=== PATIENT | male | born 1975 | race Caucasian/White ===

== ENCOUNTER 2021-03-08 21:15 | Inpatient (IN) | payer OTHER, SELFPAY ==
[2021-03-08 21:17] VITALS: BP 150/102; PULSE 88; RESP 29; TEMP 36.6; O2SAT 94; BMI 29.3
[2021-03-08 21:21] VITALS: BP 150/102; PULSE 88; RESP 26; TEMP 36.6; O2SAT 94
--- NOTE | 2021-03-08 22:12 | EKG12_ITS ---
Test Reason : DYSRHYTHMIA Blood Pressure : / mmHG Vent. Rate : 092 BPM Atrial Rate : 092 BPM P-R Int : 156 ms QRS Dur : 082 ms QT Int : 366 ms P-R-T Axes : 038 028 009 degrees QTc Int : 452 ms Normal sinus rhythm Normal ECG Confirmed by BITA RESENDEZ, DANNI ([id number]), metropolitan editor NEETA GUPTA ([id number]) on 03/15/2021 6:27:44 AM Referred By: ALINA Confirmed By:DANNI SUNSHINE MD
--- NOTE | 2021-03-08 22:12 | RAD_ITS ---
STUDY: X-RAY CHEST REASON FOR EXAM: Male, 45 years old. Dyspnea. Fever and cough. TECHNIQUE: Single AP portable view of the chest. COMPARISON: None. FINDINGS: The lungs are hypoexpanded. There is diffuse groundglass infiltrates throughout both lungs. There is no demonstrated pleural abnormality. Normal size heart. Normal mediastinum and leona. Normal visualized pulmonary arteries. Normal visualized aortic arch and descending thoracic aorta. Normal visualized thoracic spine. Normal visualized ribs, clavicles, and shoulders. There is no demonstrated abnormality of the visualized soft tissue structures of the upper abdomen. RAD/Chest 1 View (Portable) IMPRESSION: Diffuse groundglass pulmonary infiltrates. Question atypical viral pneumonia. Electronically Signed: Koby Brewer DO at 22:44 EDT Tel [phone], Service support ,
[2021-03-08] MEDS: dexAMETHasone 10 MG/ML Vial IV (22:42)
[2021-03-08 22:49] VITALS: BP 172/100; PULSE 100; RESP 29; TEMP 36.9; O2SAT 92
[2021-03-08 22:56] LABS: Hematocrit 41.7 % (40-54); Hemoglobin 14.6 g/dL (13.0-16.5); Mean Corpuscular Hgb 31.1 pg (27.0-32.0); Mean Corpuscular Volume 88.7 fL (80-94); Mean Platelet Vol. 10.3 fl (6.2-12.0); POSITIVE COUNT YES; POSITIVE MORPHOLOGY YES; Platelet Count 203 K/mm3 (150-450); RBC Distribution Width CV 11.7 % (11.6-14.6); RBC Distribution Width SD 37.6 fl (35.1-43.9); White Blood Count 7.4 K/mm3 (4.4-11.0)
--- NOTE | 2021-03-08 22:58 | EDS_ITS ---
HPI History of Present Illness Chief Complaint: Shortness of Breath Narrative Narrative: Patient is a 45-year-old male with no reported significant medical or surgical history. He states he has had nasal congestion cough fatigue and loose stool for 7 to 10 days. He states he is not vaccinated against COVID. He denies any known side contacts. He states he does not have a history of lung disorder or smoking history or need for supplemental oxygen. He reports that he feels her symptoms have been gradually worsening and his shortness of breath has worsened as well and therefore he comes in for evaluation [facility] Home Medications NK 03/08/21 [History Last Taken Unknown] Allergy/AdvReac Type Severity Reaction Status Date / Time No Known Allergies Allergy Verified 03/08/21 21:15 Surgical History (Updated 03/08/21 @ 21:18 by Sasha Fregoso) H/O hernia repair Social History Smoking Status: Never smoker [facility] ED Constitutional Constitutional ED: Denies chills or fever(s) ENT ENT ED: Reports rhinorrhea and sore throat Cardiovascular Cardiovascular: Denies chest pain Respiratory/Chest Respiratory/Chest: Reports cough and dyspnea Gastrointestinal Gastrointestinal: Reports diarrhea; Denies abdominal pain, nausea or vomiting Genitourinary Genitourinary ED: Denies dysuria Musculoskeletal Musculoskeletal: Reports myalgias Integumentary Denies rash Neurologic Neurologic: Denies headache(s) Hematologic/Lymphatic Hematologic/Lymphatic: Denies easy bleeding or easy bruising EXAM Physical Exam Const Vital Signs: 03/08/21 21:17 03/08/21 21:21 03/08/21 22:49 Temperature 98 F 98 F 98.5 F Temperature Source Oral Oral Oral Pulse Rate 88 88 100 Respiratory Rate 29 H 26 H 29 H Respiratory Effort Short of Breath Labored Respiratory Depth Normal Respiratory Pattern Tachypnea Blood Pressure 150/102 H 150/102 H 172/100 H Blood Pressure Mean 118 118 124 Pulse Ox 94 94 92 Oxygen Delivery Method Nasal Cannula Nasal Cannula Nasal Cannula Oxygen Flow Rate (L/min) 8 8 9 03/08/21 23:08 Temperature 98.5 F Temperature Source Oral Pulse Rate 100 Respiratory Rate 20 H Respiratory Effort Respiratory Depth Respiratory Pattern Blood Pressure 160/98 H Blood Pressure Mean 118 Pulse Ox 92 Oxygen Delivery Method Nasal Cannula Oxygen Flow Rate (L/min) 9 Positive well nourished and well developed General Appearance ED: well developed HEENT HEENT Narrative: Nasal mucosa is hyper Kosovan buggy and there is cobblestone in the posterior friends consistent with sinus drainage but no airway edema or compromise Eyes PERRL and EOMs intact bilaterally Neck supple and no JVD Neck Narrative: Positive anterior cervical lymphadenopathy Chest Wall palpation of chest normal Resp Resp Narrative: Patient is in mild respiratory distress with the kidney and accessory muscle use. Breath sounds are diminished throughout with diffuse rhonchi noted. Cardio regular rate and regular rhythm GI normal to inspection, nondistended, normoactive bowel sounds, non-tender and non-distended GI Narrative: Bowel sounds are hyperactive. No voluntary guardian or rigidity no. Mass Palpation: soft Extremity normal to inspection Extremity Narrative: No asymmetric edema no pitting edema negative homicide bilaterally Neuro oriented x3 and CN's II-XII intact bilaterally Sensorium / Orientation: alert Motor Exam: strength 5/5 throughout Psych mental status grossly normal Skin no rashes or lesions noted MDM MDM MDM Narrative Medical decision making narrative: Patient presented to the ER With a room air pulse ox in the mid-80s and accessory muscle use all consistent with acute respiratory failure. His history and exam is consistent with COVID's rapid swab was obtained. This was positive and x-ray did show changes consistent with COVID pneumonia. Patient had replaced on 10 L nasal cannula keep his oxygen level between 90 and 92%. He is awake and alert and talking but he is still to With accessory muscle use. Therefore this time as he is requiring a high level of oxygen he cannot go home and need to be admitted for antiviral treatment and to ensure her symptoms are improving and not worsening the need for positive pressure ventilation or intubation Lab Data Attestation: I reviewed the patient's lab results. Labs: Laboratory Results - last 24 hr 03/08/21 03/08/21 21:30 21:30 WBC 7.4 RBC 4.70 Hgb 14.6 Hct 41.7 MCV 88.7 MCH 31.1 MCHC 35.0 RDW Std Deviation 37.6 RDW Coeff of Herrera 11.7 Plt Count 203 MPV 10.3 Immature Gran % (Auto) UNIT CONTROL WORKER Neut % (Auto) UNIT CONTROL WORKER Lymph % (Auto) UNIT CONTROL WORKER [place] % (Auto) UNIT CONTROL WORKER Eos % (Auto) UNIT CONTROL WORKER Baso % (Auto) UNIT CONTROL WORKER Absolute Neuts (auto) 5.9 Absolute Lymphs (auto) 1.32 Total Counted UNIT CONTROL WORKER Neutrophils % (Manual) 77 H Band Neutrophils % 3 Lymphocytes % (Manual) 18 L Monocytes % (Manual) 2 Nucleated RBC % UNIT CONTROL WORKER Diff Path Review May foll Sodium 133 L Potassium 4.0 Chloride 96 L Carbon Dioxide 29.0 Anion Gap 8 BUN 11 Creatinine 0.64 L Estim Creat Clear Calc 119.48 Est GFR (MDRD) Af Amer 171 Est GFR (MDRD) Non-Af 141 BUN/Creatinine Ratio 17.1 Glucose 113 H Calcium 8.2 L Magnesium 1.9 Troponin I High Sens 8 Radiography Diagnostic Testing: Clinical Impression(s) from Imaging Studies Chest X-Ray 03/08/21 22:12 IMPRESSION: Diffuse groundglass pulmonary infiltrates. Question atypical viral pneumonia. Electronically Signed: Koby Brewer DO at 22:44 EDT Tel [phone], Service support , Critical Care Time Critical Care Time: Yes Critical care time (excluding procedures): - (Please note critical care time of 33 minutes) Discharge Plan Triage Chief Complaint: Shortness of Breath ED Provider: Carlyle Perez Dx/Rx/DC Orders Clinical Impression: Acute respiratory failure with hypoxia, Pneumonia due to 2019 novel coronavirus Prescriptions: No Action NK RF: 0 Primary Care Provider: Matt Griffin Referrals: Matt Griffin MD [Primary Care Provider] - Disposition Disposition: Acute Care [facility]
[2021-03-08 23:04] LABS: Differential Indicated MANUAL DIFF
[2021-03-08] MEDS: Acetaminophen 500 MG Tablet 1000 MG PO (23:07)
[2021-03-08 23:08] VITALS: BP 160/98; PULSE 100; RESP 20; TEMP 36.9; O2SAT 92
[2021-03-08 23:14] LABS: Anion Gap 8 (5-15); BUN 11 mg/dL (7-18); BUN/Creat Ratio 17.1 RATIO (10-20); Calcium,Total 8.2 mg/dL (8.5-10.1); Chloride 96 mmol/L (98-107); Creatinine, Serum 0.64 mg/dL (0.70-1.30); EST Glomerular Filtration Rate 141 mL/min (>60); Est Glom Filt Rate - Afr Amer 171 mL/min (>60); Estimated Creatinine Clearance 119.48 ml/min; Glucose 113 mg/dL (74-106); Magnesium 1.9 mg/dL (1.6-2.6); Sodium Level 133 mmol/L (136-145); Troponin-I HS 8 pg/mL (3.0-78.0)
[2021-03-08 23:24] LABS: Lymphocyte 18 % (19-41); Monocyte 2 % (0-10); Neutrophil-Band 3 % (0-5); Neutrophil-Segmented 77 % (47-70); Scan Smear per Review Criteria MANUAL DIFF
[2021-03-08 23:25] LABS: Absolute Lymphocyte Count 1.32 X10^3/uL (0.83-4.51); Absolute Neutrophil Count 5.9 X10^3/uL (2.0-7.7)
[2021-03-09] VITALS (14 sets, daily range): BP systolic 137–183; BP diastolic 86–113; PULSE 80–99; RESP 18–28; TEMP 36–37.3; O2SAT 90–94; BMI 27.3
--- NOTE | 2021-03-09 01:21 | PCM.HP.STD ---
HPI - General General Date of Admission: 03/09/21 Date of Service: 03/09/21 Chief Complaint: SOB HPI Narrative FELICIA GARCIA, is a 45 M with no significant medical history who presents to emergency department with shortness of breath. His symptoms started on February 25, 2021. His symptoms improved and then worsened. Associated with symptoms is a cough occasionally productive for hemoptysis. He reports anosmia and dysgeusia. Further he reports anorexia; myalgia; fatigue; weakness; subjective fever; chills; sore throat and wheezes. He is unvaccinated for COVID-19 virus. Patient tested positive for Covid 19 virus at the emergency department. Patient is unvaccinated against COVID-19 virus. PFSH no medical history Home Medications NK 03/08/21 [History Last Taken Unknown] Allergy/AdvReac Type Severity Reaction Status Date / Time No Known Allergies Allergy Verified 03/08/21 21:15 Family History (Updated 03/09/21 @ 01:[address] Javi Arshad MD) Other Dementia Surgical History H/O hernia repair Social History Smoking Status: Never smoker ROS ROS Narrative Constitutional: Reports subjective fever, chills, fatigue, and anorexia. Denies change in weight Eyes: Denies blurry vision, change in eye color, change in vision, discharge from eye(s), double vision, erythema, eye pain, loss of vision or other HEENT: Reports sore throat. Denies abnormal hearing, dysphagia, ear pain, epistaxis, hearing loss, nasal congestion, nasal discharge, post nasal drip, sinus pressure, or other Cardiovascular: Denies chest pain or palpitations. Denies dyspnea on exertion, orthopnea and paroxysmal nocturnal dyspnea Respiratory/Chest: Reports cough with hemoptysis. Reports shortness of breath and some wheezes. Gastrointestinal: Reports loose stools. Denies abdominal pain, coffee ground emesis, constipation, dyspepsia, hematemesis, hematochezia, melena, nausea, vomiting or other Genitourinary: Denies burning urination, difficulty urinating, dysuria, hematuria, nocturia, urinary frequency, urinary hesitancy, urinary incontinence, urinary urgency or other Musculoskeletal: Reports myalgia. Denies arthralgias, joint stiffness, joint swelling, or other Neurologic: Denies abnormal gait, abnormal speech, confusion, disequilibrium, dizziness, focal weakness, headache(s), numbness, paresthesias, seizure-like activity, seizures, syncope, tingling, tremor(s) or other Psychiatric: Denies anxiety, depression, homicidal ideation, suicidal ideation or other Endocrinology: Denies change in body appearance, excessive sweating, polydipsia, polyuria or other Hematologic/Lymphatic: Denies anemia, easy bleeding, easy bruising, lymphadenopathy or other Integumentary: Denies rashes Allergic/Immunologic: Denies rhinitis, hives, eczema, asthma or other Vital Signs Vital Signs Vital Signs: 03/08/21 21:17 03/08/21 21:21 03/08/21 22:49 Temperature 98 F 98 F 98.5 F Temperature Source Oral Oral Oral Pulse Rate 88 88 100 Respiratory Rate 29 H 26 H 29 H Respiratory Effort Short of Breath Labored Respiratory Depth Normal Respiratory Pattern Tachypnea Blood Pressure 150/102 H 150/102 H 172/100 H Blood Pressure Mean 118 118 124 Pulse Ox 94 94 92 Oxygen Delivery Method Nasal Cannula Nasal Cannula Nasal Cannula Oxygen Flow Rate (L/min) 8 8 9 03/08/21 23:08 Temperature 98.5 F Temperature Source Oral Pulse Rate 100 Respiratory Rate 20 H Respiratory Effort Respiratory Depth Respiratory Pattern Blood Pressure 160/98 H Blood Pressure Mean 118 Pulse Ox 92 Oxygen Delivery Method Nasal Cannula Oxygen Flow Rate (L/min) 9 Weight Weight: 77.5 kg Body Mass Index (BMI) 29.3 Physical Exam Narrative Physical exam: General: Well-nourished, well-developed. Head: Normocephalic, atraumatic, no tenderness Eyes: PERRLA, EOMI ENT, no trauma, moist mucous membranes, no rhinorrhea Neck: Nontender, full range of motion, no spinal tenderness, deformities, step-off CVS: Tachycardia. S1-S2 present. No murmur, gallop or rub. Respiratory : Tachypnea. Rales, chest wall nontender, no wheezing Abdomen: Soft, nontender, nondistended, normal bowel sounds, no masses : Deferred Back: Nontender, no CVA tenderness, no midline spinal tenderness, deformities, step-offs Extremities: Nontender full range of motion, no trauma Skin: Normal color, no trauma, abrasions Neuro: Alert, oriented, cranial nerves II through XII grossly intact. Psychiatry: Normal mood. Normal affect. Not depressed. Not anxious. Results Lab / Micro Data Result Diagrams: 03/08/21 21:30 03/08/21 21:30 Labs: Laboratory Results - last 24 hr 03/08/21 21:30: WBC 7.4, RBC 4.70, Hgb 14.6, Hct 41.7, MCV 88.7, MCH 31.1, MCHC 35.0, RDW Std Deviation 37.6, RDW Coeff of Herrera 11.7, Plt Count 203, MPV 10.3, Immature Gran % (Auto) SOCIAL SERVICE COORDINATOR, Neut % (Auto) SOCIAL SERVICE COORDINATOR, Lymph % (Auto) SOCIAL SERVICE COORDINATOR, [place] % (Auto) SOCIAL SERVICE COORDINATOR, Eos % (Auto) SOCIAL SERVICE COORDINATOR, Baso % (Auto) SOCIAL SERVICE COORDINATOR, Absolute Neuts (auto) 5.9, Absolute Lymphs (auto) 1.32, Total Counted SOCIAL SERVICE COORDINATOR, Neutrophils % (Manual) 77 H, Band Neutrophils % 3, Lymphocytes % (Manual) 18 L, Monocytes % (Manual) 2, Nucleated RBC % SOCIAL SERVICE COORDINATOR, Diff Path Review September03/08/21 21:30: Sodium 133 L, Potassium 4.0, Chloride 96 L, Carbon Dioxide 29.0, Anion Gap 8, BUN 11, Creatinine 0.64 L, Estim Creat Clear Calc 119.48, Est GFR (MDRD) Af Amer 171, Est GFR (MDRD) Non-Af 141, BUN/Creatinine Ratio 17.1, Glucose 113 H, Calcium 8.2 L, Magnesium 1.9, Troponin I High Sens 8 Micro: Microbiology 03/08/21 21:30 Nasal Secretion SARS-CoV-2 Antigen (Rapid) - Final Radiology Impression Chest X-Ray 03/08/21 22:12 IMPRESSION: Diffuse groundglass pulmonary infiltrates. Question atypical viral pneumonia. Electronically Signed: Koby Brewer DO at 22:44 EDT Tel [phone], Service support , Assessment & Plan Assessment/Plan (1) Acute respiratory failure with hypoxia: (2) Pneumonia due to 2019 novel coronavirus: (3) Elevated blood pressure reading without diagnosis of hypertension: PLAN: Acute hypoxemic respiratory failure secondary to SARS- COV 2 Rapid Covid antigen at the emergency department was positive. Patient with tachypnea and required 8 to 10 L of nasal cannula at emergency department. Continue supplemental oxygen to keep oxygen saturation to at least 90%. Positive coronavirus test outpatient. Chest x-ray image was independently interpreted and I agree with radiologist interpretation as above. Because of hemoptysis discussed emergent department doctor to get a D-dimer. If D-dimer is elevated consider chest CTA. 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 Procalcitonin ordered. Received Decadron IV at the emergency department. Decadron p.o. ordered. Patient is outside window for remdesivir. Tylenol as needed for fever Mucinex ordered Albuterol as needed for shortness of breath and wheezes. Incentive spirometer and to physiotherapy ordered. Elevated blood pressure without diagnosis of hypertension Noted to have elevated blood pressure with systolic of more than 120 and diastolic of more than 80. As needed hydralazine ordered. DVT prophylaxis: Lovenox 40 mg daily ordered. Of note patient reports hemoptysis outpatient. Charges/Coding Visit Charges Inpatient E&M: 07620 Init Hosp L3
[2021-03-09 02:22] LABS: D-Dimer Quantitative (DVT/PE) 1.64 FEU/ug/m (0.27-0.49)
--- NOTE | 2021-03-09 02:23 | CT_ITS ---
STUDY: CTA CHEST REASON FOR EXAM: Male, 45 years old. elevated d-dimer RADIATION DOSAGE (If Supplied By Facility): CTDIvol = ( 14.09 ) mGy, DLP = ( 466.57 ) mGycm TECHNIQUE: The examination was performed with the intravenous administration of IV 75mL Isovue-370. Post-processing of the angiographic images was performed, with multiplanar reformation and 3D reconstruction. Individualized dose optimization techniques were used for this CT. COMPARISON: None. FINDINGS: Normal enhancement of the main pulmonary artery and right and left pulmonary arteries. Normal enhancement of the bilateral peripheral pulmonary arteries. There is no demonstrated pulmonary embolism. Normal thoracic aorta and visualized great vessels. There is no demonstrated aortic dissection. Normal heart and pericardium. Normal mediastinum. Normal hilar regions. Normal visualized trachea and bronchi. The lungs are well expanded. Ill-defined subpleural groundglass opacities are seen more prominent in the lung bases , may represent atypical pneumonia or viral pneumonia (COVID-19 ?). Normal pleura. Normal chest wall structures. Normal osseous structures. Normal visualized upper abdomen. CT/CTA Chest W/WO Contrast IMPRESSION: No demonstrated pulmonary embolism or arterial dissection. Ill-defined subpleural groundglass opacities are seen more prominent in the lung bases , may represent atypical pneumonia or viral pneumonia (COVID-19 ?). Electronically Signed: Karey German MD at 5:47 EDT Tel , Service support ,
--- NOTE | 2021-03-09 04:08 | PCS.PANDOC ---
PANDEMIC DOCUMENTATION INITIATED: Date: 03/09/21 Time: 0300
[2021-03-09] MEDS: hydrALAZINE 20 MG/ML Vial 5 MG IV (04:59)
[2021-03-09] MEDS: amLODIPine 5 MG Tablet PO (05:00)
[2021-03-09] MEDS: guaiFENesin 1,200 MG Tablet 1200 MG PO ×2 (05:00→20:59)
[2021-03-09 06:06] LABS: Hematocrit 43.2 % (40-54); Hemoglobin 15.1 g/dL (13.0-16.5); Mean Corpuscular Hgb 31.3 pg (27.0-32.0); Mean Corpuscular Volume 89.4 fL (80-94); Mean Platelet Vol. 10.2 fl (6.2-12.0); POSITIVE COUNT YES; POSITIVE DIFFERENTIAL YES; POSITIVE MORPHOLOGY YES; Platelet Count 217 K/mm3 (150-450); RBC Distribution Width CV 11.6 % (11.6-14.6); RBC Distribution Width SD 37.7 fl (35.1-43.9); Red Blood Count 4.83 M/mm3 (4.6-6.2); White Blood Count 6.7 K/mm3 (4.4-11.0)
[2021-03-09 06:11] LABS: Differential Indicated MANUAL DIFF
[2021-03-09 06:34] LABS: ALB/GLOB Ratio 0.5 RATIO (0.9-2.4); AST(SGOT) 72 U/L (15-37); Alanine Aminotransfer ALT/SGPT 67 U/L (16-61); Albumin, Serum 2.4 g/dL (3.2-5.0); Alkaline Phosphatase 50 U/L (45-117); Anion Gap 11 (5-15); BUN 9 mg/dL (7-18); BUN/Creat Ratio 14.4 RATIO (10-20); Calcium,Total 8.5 mg/dL (8.5-10.1); Chloride 96 mmol/L (98-107); Creatinine, Serum 0.62 mg/dL (0.70-1.30); EST Glomerular Filtration Rate 147 mL/min (>60); Est Glom Filt Rate - Afr Amer 178 mL/min (>60); Estimated Creatinine Clearance 123.33 ml/min; Globulin 4.5 g/dL (2.2-4.2); Glucose 139 mg/dL (74-106); Potassium 3.8 mmol/L (3.5-5.1); Protein, Total 6.9 g/dL (6.4-8.2); Sodium Level 133 mmol/L (136-145); Total Cells Counted 100 (MANUAL DIFF)
[2021-03-09 06:37] LABS: Neutrophil-Segmented 87 % (47-70)
[2021-03-09 06:38] LABS: Lymphocyte 8 % (19-41); Metamyelocyte 2 % (0-1); Myelocyte 1 % (0-0); Neutrophil-Band 2 % (0-5); Platelet Estimate ADEQUATE (ADEQ); Red Cell Morphology NORM C+C NORMAL (NORM C&C)
[2021-03-09 06:39] LABS: Absolute Lymphocyte Count 0.54 X10^3/uL (0.83-4.51); Lymphocyte # 0.54 X10^3/ul (0.83-4.51); Neutrophil # 5.99 X10^3/uL (2.7-7.7)
[2021-03-09 08:23] LABS: Procalcitonin 0.14 ng/mL (0.00-0.09)
[2021-03-09] MEDS: dexAMETHasone 4 MG Tablet 6 MG PO (08:36)
[2021-03-09] MEDS: Enoxaparin 40 MG/0.4 ML Syringe SC (08:37)
--- NOTE | 2021-03-09 08:59 | PCM.PN.HOSP ---
Objective Data Objective Data Vital Signs: Vital Signs Temp Pulse Resp BP Pulse Ox 98.1 F 95 20 H 137/86 H 91 03/09/21 08:41 03/09/21 08:41 03/09/21 08:41 03/09/21 08:41 03/09/21 08:41 Oxygen Flow Rate (L/min) 11 Oxygen Delivery Method Nasal Cannula Weight: 160 lb 7.944 oz Body Mass Index (BMI) 27.3 Intake & Output: Intake and Output for Last 24 Hours 03/08/21 03/09/21 03/10/21 03:59 03:59 03:59 Intake Total 100 / 100 Balance 100 / 100 Lab / Micro Data Result Diagrams: 03/09/21 05:28 03/09/21 05:28 Labs: Laboratory Results - last 24 hr 03/08/21 21:30: WBC 7.4, RBC 4.70, Hgb 14.6, Hct 41.7, MCV 88.7, MCH 31.1, MCHC 35.0, RDW Std Deviation 37.6, RDW Coeff of Herrera 11.7, Plt Count 203, MPV 10.3, Immature Gran % (Auto) WORLD HISTORY TEACHER, Neut % (Auto) WORLD HISTORY TEACHER, Lymph % (Auto) WORLD HISTORY TEACHER, [place] % (Auto) WORLD HISTORY TEACHER, Eos % (Auto) WORLD HISTORY TEACHER, Baso % (Auto) WORLD HISTORY TEACHER, Absolute Neuts (auto) 5.9, Absolute Lymphs (auto) 1.32, Total Counted WORLD HISTORY TEACHER, Neutrophils % (Manual) 77 H, Band Neutrophils % 3, Lymphocytes % (Manual) 18 L, Monocytes % (Manual) 2, Nucleated RBC % WORLD HISTORY TEACHER, Diff Path Review September03/08/21 21:30: Sodium 133 L, Potassium 4.0, Chloride 96 L, Carbon Dioxide 29.0, Anion Gap 8, BUN 11, Creatinine 0.64 L, Estim Creat Clear Calc 119.48, Est GFR (MDRD) Af Amer 171, Est GFR (MDRD) Non-Af 141, BUN/Creatinine Ratio 17.1, Glucose 113 H, Calcium 8.2 L, Magnesium 1.9, Troponin I High Sens 8 03/08/21 21:35: D-Dimer Quant (PE/DVT) 1.64 H* 03/09/21 05:28: Procalcitonin 0.14 H 03/09/21 05:28: WBC 6.7, RBC 4.83, Hgb 15.1, Hct 43.2, MCV 89.4, MCH 31.3, MCHC 35.0, RDW Std Deviation 37.7, RDW Coeff of Herrera 11.6, Plt Count 217, MPV 10.2, Neut % (Auto) Not Reportable, Absolute Neuts (auto) 6.0, Absolute Lymphs (auto) 0.54 L, Total Counted 100, Neutrophils % (Manual) 87 H, Band Neutrophils % 2, Lymphocytes % (Manual) 8 L, Metamyelocytes % 2 H, Myelocytes % 1 H, Diff Path Review September, Platelet Estimate ADEQUATE, RBC Morphology NORM C+C 03/09/21 05:28: Sodium 133 L, Potassium 3.8, Chloride 96 L, Carbon Dioxide 26.0, Anion Gap 11, BUN 9, Creatinine 0.62 L, Estim Creat Clear Calc 123.33, Est GFR (MDRD) Af Amer 178, Est GFR (MDRD) Non-Af 147, BUN/Creatinine Ratio 14.4, Glucose 139 H, Calcium 8.5, Total Bilirubin 0.30, AST 72 H, ALT 67 H, Alkaline Phosphatase 50, Total Protein 6.9, Albumin 2.4 L, Globulin 4.5 H, Albumin/Globulin Ratio 0.5 L Micro: Microbiology 03/08/21 21:30 Nasal Secretion SARS-CoV-2 Antigen (Rapid) - Final Radiography Diagnostic Testing: Radiology Impression Chest X-Ray 03/08/21 22:12 IMPRESSION: Diffuse groundglass pulmonary infiltrates. Question atypical viral pneumonia. Electronically Signed: Koby Brewer DO at 22:44 EDT Tel [phone], Service support , Chest CTA 03/09/21 02:23 IMPRESSION: No demonstrated pulmonary embolism or arterial dissection. Ill-defined subpleural groundglass opacities are seen more prominent in the lung bases , may represent atypical pneumonia or viral pneumonia (COVID-19 ?). Electronically Signed: Karey German MD at 5:47 EDT Tel , Service support , Assessment & Plan Assessment/Plan (1) Acute respiratory failure with hypoxia: (2) Pneumonia due to 2019 novel coronavirus: (3) Elevated blood pressure reading without diagnosis of hypertension: PLAN: 1. Acute hypoxic respiratory failure secondary to COVID-19 pneumonia -He is more than 10 days out from onset of symptoms which was February 25 -Continue with Decadron but does not qualify remdesivir at this time -Continue with oxygen and will monitor. He is unvaccinated -CT of the chest was negative for PE 2. Hypertension -He does not have this diagnosis as an outpatient while here we will place him on Norvasc as his symptoms improve if his blood pressure improves can take him off and have him follow-up as an outpatient DVT: Lovenox
--- NOTE | 2021-03-09 14:12 | CHAPLAIN ---
Type of Pastoral Visit ___ Initial Visit ___ Follow-up Visit ___ On-call Visit ___ General Patient Visit ___ Spiritual Assessment ___ Family Conference ___ Bereavement ___ Rapid Response ___ Code Blue _x__ Other (describe below) Pastoral Care Referral From _x__ Patient ___ Family ___ Nurse ___ Physician ___ Product Safety Professional ___ General Warehouse Worker ___ Other (describe below) Sacrament/Intervention _x__ Active listening ___ Anointing ___ Shinto ___ Bereavement ___ Communion ___ Francesca exploration ___ ___ Life review _x__ Prayer ___ Reconciliation ___ Sacrament of Sick ___ Supportive presence ___ Wedding ___ Other (describe below) Pastoral Comments phone call into isolation room; patient is able to answer the phone and does welcome the support; prayer is offered and accepted; pt concern is for his family at home; no other needs at this time
--- NOTE | 2021-03-09 14:30 | CASEMGMT ---
Addendum entered by Abdias Daniels 03/09/21 16:09: Correction: Pt did state he lives in 2-story home, but unsure of specifics of bedroom/bathroom locations. Prior info about this was documented in error. Original Note: RN CM AUTOMATION TEST ENGINEER CM to room to meet with patient for initial transition planning/care coordination assessment. RN MANNY introduced self and role at [facility]. Pt voices understanding and consents to assessment at this time. Pt laying prone in bed in no distress at this time. Pt is A/O at this time and answers all questions appropriately. Care providers, pharmacy, and demographics verified/updated at this time. Pt had COVID testing @ [facility] 03/08. has not been ill. She had COVID last 2019. One of his sons has been sick but is improving and still has a mild sore throat. PCP: Dr Griffin Specialists:none Preferred Pharmacy: [facility] [place] [facility] [place]: [place] Living Will/HPOA: Pt states I know I have some kind of will and papers done, but I'm not sure what they all are. LNOK: . 4 kids--ages: 23, 19, 15, 13 Living Arrangements: Lives w/ and 3 children live w/them. They live in a 2-story home w/2 steps to enter. Denies difficulty w/stairs. Bedroom is on 2nd floor. Bathroom on both levels. Independent prior to recent illness. Transportation: Hire drivers. Pt states he knows of someone that would be willing to drive him home even w/him having COVID. DME: Pt has a pulse ox. Discussed possible need for O2 @ d/c. Pt states he does have a generator if needed. Pt made aware 30-day supply of home O2 is approx $200. He states this is affordable. Pt was provided with list of HHC providers consistent with the patient's preferred geographic region and medical needs. The pt's chooses [facility]. HHC/SNF: No hx of either. Denies needs and no needs identified. Pt wishes to return home and states has no concerns with going home at time of discharge. CM to follow for home oxygen needs and any further discharge planning/needs. Pt voices no further concerns/needs at this time. Advised pt to ask for CM if any further questions/concerns/needs arise. Voices understanding. PLAN: Home. CM to follow for any Home O2 needs @ d/c. Pt has a generator. He is able to afford paying for O2 [id number]. Wild RIZVIN RN CM
--- NOTE | 2021-03-09 23:38 | NURSING ---
Patients SP02 alarming at 86%, this RN and RT went into patients room. 02 increased form 12L to 13L HF, patient positioned into a prone position. S02 increased to 95%. Will continue to monitor.
[2021-03-10] VITALS (10 sets, daily range): BP systolic 129–152; BP diastolic 83–99; PULSE 56–78; RESP 18; TEMP 35.7–36.9; O2SAT 84–95
--- NOTE | 2021-03-10 03:09 | NURSING ---
Patient instructed to use IS and position on left side during this time. 02 increased to 15L, HF.
[2021-03-10 08:17] LABS: Absolute Lymphocyte Count 0.79 X10^3/uL (0.83-4.51); Absolute Neutrophil Count 6.8 X10^3/uL (2.0-7.7); Basophil# 0.02 X10^3/uL; Basophil% 0.2 % (0-1); Hematocrit 42.1 % (40-54); Hemoglobin 14.7 g/dL (13.0-16.5); Lymphocyte # 0.79 X10^3/ul (0.83-4.51); Lymphocyte % 9.5 % (19-41); Mean Corp Hgb Conc 34.9 g/dL (32-36); Mean Corpuscular Hgb 31.3 pg (27.0-32.0); Mean Corpuscular Volume 89.8 fL (80-94); Mean Platelet Vol. 10.2 fl (6.2-12.0); Monocyte# 0.26 X10^3/uL; Monocyte% 3.1 % (0-10); NRBC Flagged by Analyzer 0 % (0-5); Neutrophil # 6.83 X10^3/uL (2.7-7.7); Neutrophil % 82.2 % (47-70); Platelet Count 276 K/mm3 (150-450); RBC Distribution Width CV 11.9 % (11.6-14.6); RBC Distribution Width SD 38.9 fl (35.1-43.9); Red Blood Count 4.69 M/mm3 (4.6-6.2); White Blood Count 8.3 K/mm3 (4.4-11.0)
[2021-03-10 08:45] LABS: Anion Gap 7 (5-15); BUN 24 mg/dL (7-18); BUN/Creat Ratio 31.1 RATIO (10-20); Calcium,Total 8.7 mg/dL (8.5-10.1); Chloride 100 mmol/L (98-107); Creatinine, Serum 0.77 mg/dL (0.70-1.30); EST Glomerular Filtration Rate 115 mL/min (>60); Est Glom Filt Rate - Afr Amer 139 mL/min (>60); Estimated Creatinine Clearance 99.31 ml/min; Glucose 114 mg/dL (74-106); Potassium 3.9 mmol/L (3.5-5.1); Sodium Level 135 mmol/L (136-145)
[2021-03-10] MEDS: Enoxaparin 40 MG/0.4 ML Syringe SC (08:50)
[2021-03-10] MEDS: Furosemide 40 MG/4 ML Vial IV (08:51)
[2021-03-10] MEDS: guaiFENesin 1,200 MG Tablet 1200 MG PO ×2 (08:53→20:46)
[2021-03-10] MEDS: amLODIPine 5 MG Tablet PO (08:54)
[2021-03-10] MEDS: dexAMETHasone 4 MG Tablet 6 MG PO (08:54)
--- NOTE | 2021-03-10 09:09 | NURSING ---
This nurse reinforced using I.S, sitting in chair and laying prone in bed. Pt is sitting in chair, was told to sit at least until 1000 and is using I.S while sitting up.
[2021-03-10 09:27] LABS: Pathologist Review Reviewed
--- NOTE | 2021-03-10 12:49 | PN.HOSP_ITS ---
Subjective Subjective No issues overnight, has not had to increase his oxygen from 8 L nasal cannula to 15 Objective Data Objective Data Vital Signs: Vital Signs Temp Pulse Resp BP Pulse Ox 96.2 F L 67 18 145/96 H 93 03/10/21 08:30 03/10/21 08:30 03/10/21 08:30 03/10/21 08:30 03/10/21 08:56 Oxygen Flow Rate (L/min) 15 Oxygen Delivery Method Nasal Cannula Weight: 160 lb 7.944 oz Body Mass Index (BMI) 27.3 Intake & Output: Intake and Output for Last 24 Hours 03/09/21 03/10/21 03/11/21 03:59 03:59 03:59 Intake Total 100 / 100 Output Total 150 / 150 Balance -50 / -50 Lab / Micro Data Result Diagrams: 03/10/21 07:12 03/10/21 07:12 Labs: Laboratory Results - last 24 hr 03/08/21 21:30: Diff Path Review Reviewed 03/10/21 07:12: WBC 8.3, RBC 4.69, Hgb 14.7, Hct 42.1, MCV 89.8, MCH 31.3, MCHC 34.9, RDW Std Deviation 38.9, RDW Coeff of Herrera 11.9, Plt Count 276, MPV 10.2, Immature Gran % (Auto) 5.000 H, Neut % (Auto) 82.2 H, Lymph % (Auto) 9.5 L, [place] % (Auto) 3.1, Eos % (Auto) 0.0, Baso % (Auto) 0.2, Absolute Neuts (auto) 6.8, Absolute Lymphs (auto) 0.79 L, Nucleated RBC % 0 03/10/21 07:12: Sodium 135 L, Potassium 3.9, Chloride 100, Carbon Dioxide 28.0, Anion Gap 7, BUN 24 H, Creatinine 0.77, Estim Creat Clear Calc 99.31, Est GFR (MDRD) Af Amer 139, Est GFR (MDRD) Non-Af 115, BUN/Creatinine Ratio 31.1 H, Glucose 114 H, Calcium 8.7 Micro: Microbiology 03/09/21 20:55 Sputum, Expectorated/Coughed Respiratory Culture - Preliminary Appears to be normal respiratory ramón. Further studies to follow. 10/12/21 21:30 Nasal Secretion SARS-CoV-2 Antigen (Rapid) - Final SARS-CoV-2 (COVID 19) Physical Exam Const alert, oriented x3 and no apparent distress General Appearance: cooperative HEENT normocephalic and moist oral mucous membranes Eyes PERRL, EOMs intact bilaterally and conjunctivae normal Neck supple and no JVD Resp normal respiratory effort, no retractions and no use of accessory muscles Auscultation: crackles; Negative for rales, rhonchi or wheezes Cardio regular rate, regular rhythm, S1 normal heart sound, S2 normal heart sound and no murmurs GI soft to palpation, non-tender and non-distended; Negative for hepatosplenomegaly Extremity no clubbing, cyanosis or edema Skin no rashes or lesions noted Neuro no focal motor deficits and no sensory deficits noted Psych affect normal Appearance: appropriate Assessment & Plan Assessment/Plan (1) Acute respiratory failure with hypoxia: (2) Pneumonia due to 2019 novel coronavirus: (3) Elevated blood pressure reading without diagnosis of hypertension: PLAN: 1. Acute hypoxic respiratory failure secondary to COVID-19 pneumonia -He is more than 10 days out from onset of symptoms which was February 25 -Continue with Decadron but does not qualify remdesivir at this time -Continue with oxygen and will monitor. He is unvaccinated -CT of the chest was negative for PE -Given increasing oxygen requirements, will give him a dose of Lasix today and consult pulmonary medicine for evaluation 2. Hypertension -He does not have this diagnosis as an outpatient while here we will place him on Norvasc as his symptoms improve if his blood pressure improves can take him off and have him follow-up as an outpatient DVT: Lovenox Charges/Coding Visit Charges Inpatient E&M: 75078 Subs Hosp L2
--- NOTE | 2021-03-10 15:03 | CON.PCM.CC_ITS ---
Assessment & Plan Assessment/Plan (1) Acute respiratory failure with hypoxia: (2) Pneumonia due to 2019 novel coronavirus: (3) Elevated blood pressure reading without diagnosis of hypertension: PLAN: RECOMMENDATIONS: 1. Continue Decadron 2. Not a candidate for baricitinib or remdesivir given delayed presentation 3. Diuresis as tolerated 4. Wean oxygen as tolerated while keeping saturations greater than 90% 5. Avoid SHON inhibitor for hypertension if possible 6. Await response to diuretic therapy IMPRESSIONS: 1. Acute hypoxic respiratory failure secondary to COVID-19 Patient with extensive bilateral infiltrates noted on chest x-ray. Unfortunately, patient was very delayed in presentation, so treatment options are limited. Patient will be initiated on Decadron therapy. Patient would not qualify for remdesivir or baricitinib secondary to delayed presentation. Patient has been given a dose of Lasix, so will await response. Recheck renal function in the morning. Did verify patient is a full code, so intubation cannot be excluded. Airvo versus BiPAP may be more appropriate if patient starts to desaturate overnight. 2. Lack of primary care/delayed presentation Complicates care, management, recovery and prognosis. Patient's blood pressure is elevated and glucose was noted to be 114. We will need to watch for complications of Decadron therapy including hypertension and hyperglycemia. HPI Consult Data Date of Consult: 03/10/21 HPI Narrative HPI Narrative: FELICIA GARCIA is a 45 M, with no reported past medical history, who presents to [facility] on 03/08/2021 secondary to nasal congestion, cough, fatigue and diarrhea. Patient is not vaccinated against COVID-19 and denies any history of previous lung disease. Patient states he started to have symptoms on February 25 and they had progressed to the point that he felt that he needed to be evaluated. In the ER, patient was afebrile, but tachypneic at 29 breaths/min. Patient was requiring 8 L nasal cannula to maintain a saturation of 92%. Patient was hypertensive, but not tachycardic. Laboratory work-up showed a white blood cell count of 7.4, hemoglobin of 14.6 and unremarkable chemistries. Troponin was normal. Chest x-ray showed bilateral infiltrates. Patient Covid testing was positive. Patient was admitted to the floor for further evaluation given the high need for supplemental oxygen. The patient reports he is never been a smoker and has never required an inhaler. Patient has never been seen by a authorization representative or required supplemental oxygen. 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 Patient stated that he started to have symptoms on February 25 that were relatively vague and started with a sore throat. Patient does not routinely follow with a physician as he is not old enough to have problems. Mckinley discussion with patient about CODE STATUS. Did confirm patient is a full code. Review of systems otherwise negative from a constitutional, HEENT, respiratory, cardiovascular, GI, genitourinary, musculoskeletal, skin, neurologic, psychiatric and hematologic system unless stated above. [facility] Medical History no medical history Home Medications NK 03/08/21 [History Last Taken Unknown] Allergy/AdvReac Type Severity Reaction Status Date / Time No Known Allergies Allergy Verified 03/08/21 21:15 Family History Other Dementia Surgical History H/O hernia repair Social History Smoking Status: Never smoker ROS ROS Narrative See HPI Physical Exam Const alert, oriented x3 and no apparent distress General Appearance: cooperative HEENT normocephalic Mouth: dry mucous membranes Eyes PERRL, EOMs intact bilaterally and conjunctivae normal Neck supple and no JVD Chest inspection of chest normal Chest: symmetrical chest wall rise; Negative for crepitus Resp no retractions and no use of accessory muscles Auscultation: rales diffuse and diminished lung sounds; Negative for rhonchi or wheezes Cardio regular rate, regular rhythm, S1 normal heart sound, S2 normal heart sound and no murmurs GI soft to palpation, non-tender and non-distended; Negative for hepatosplenomegaly Extremity no clubbing, cyanosis or edema Skin no rashes or lesions noted Neuro no focal motor deficits and no sensory deficits noted Psych affect normal Appearance: appropriate Lab / Micro Data Result Diagrams: 03/10/21 07:12 03/10/21 07:12 Labs: Laboratory Results - last 24 hr 03/08/21 21:30: Diff Path Review Reviewed 03/10/21 07:12: WBC 8.3, RBC 4.69, Hgb 14.7, Hct 42.1, MCV 89.8, MCH 31.3, MCHC 34.9, RDW Std Deviation 38.9, RDW Coeff of Herrera 11.9, Plt Count 276, MPV 10.2, Immature Gran % (Auto) 5.000 H, Neut % (Auto) 82.2 H, Lymph % (Auto) 9.5 L, [place] % (Auto) 3.1, Eos % (Auto) 0.0, Baso % (Auto) 0.2, Absolute Neuts (auto) 6.8, Absolute Lymphs (auto) 0.79 L, Nucleated RBC % 0 03/10/21 07:12: Sodium 135 L, Potassium 3.9, Chloride 100, Carbon Dioxide 28.0, Anion Gap 7, BUN 24 H, Creatinine 0.77, Estim Creat Clear Calc 99.31, Est GFR (MDRD) Af Amer 139, Est GFR (MDRD) Non-Af 115, BUN/Creatinine Ratio 31.1 H, Glucose 114 H, Calcium 8.7 Micro: Microbiology 03/09/21 20:55 Sputum, Expectorated/Coughed Gram Stain - Final 03/09/21 20:55 Sputum, Expectorated/Coughed Respiratory Culture - Preliminary Appears to be normal respiratory ramón. Further studies to follow. 03/08/21 21:30 Nasal Secretion SARS-CoV-2 Antigen (Rapid) - Final SARS-CoV-2 (COVID 19) Charges/Coding Visit Charges Inpatient E&M: 08792 Init Hosp L3
--- NOTE | 2021-03-10 15:13 | NURSING ---
Pt assited into laying prone. using i.s laying prone. spo2 95%.
--- NOTE | 2021-03-10 17:58 | NURSING ---
layed prone again for about an hour. Now on his side. Pt states he feels more SOB when he lays prone. This nurse turned oxygen down to 10L and spo2 is 93% at this time.
[2021-03-10] MEDS: 0.9% Saline Lock 10 ML Syringe IV (18:01)
[2021-03-11] VITALS (10 sets, daily range): BP systolic 122–142; BP diastolic 76–87; PULSE 75–106; RESP 18–20; TEMP 36.6–37.2; O2SAT 91–95
[2021-03-11 07:37] LABS: Anion Gap 7 (5-15); BUN 23 mg/dL (7-18); BUN/Creat Ratio 30.5 RATIO (10-20); Calcium,Total 8.7 mg/dL (8.5-10.1); Chloride 100 mmol/L (98-107); Creatinine, Serum 0.75 mg/dL (0.70-1.30); EST Glomerular Filtration Rate 118 mL/min (>60); Est Glom Filt Rate - Afr Amer 143 mL/min (>60); Estimated Creatinine Clearance 101.96 ml/min; Glucose 100 mg/dL (74-106); Potassium 4.1 mmol/L (3.5-5.1); Sodium Level 136 mmol/L (136-145)
--- NOTE | 2021-03-11 08:20 | PCM.PN.INT ---
Assessment & Plan Assessment/Plan (1) Acute respiratory failure with hypoxia: (2) Pneumonia due to 2019 novel coronavirus: (3) Elevated blood pressure reading without diagnosis of hypertension: PLAN: RECOMMENDATIONS: 1. Continue Decadron (03/19/2021) 2. Not a candidate for baricitinib or remdesivir given delayed presentation 3. Diuresis as tolerated. Challenge today. 4. Wean oxygen as tolerated while keeping saturations greater than 90% 5. Avoid SHON inhibitor for hypertension if possible IMPRESSIONS: 1. Acute hypoxic respiratory failure secondary to COVID-19 Patient with extensive bilateral infiltrates noted on chest x-ray. Unfortunately, patient was very delayed in presentation, so treatment options are limited. Patient will be continued on Decadron therapy. Patient would not qualify for remdesivir or baricitinib secondary to delayed presentation. Recheck renal function daily in the morning to facilitate diuretic dosing. Did verify patient is a full code, so intubation cannot be excluded. Airvo versus BiPAP may be more appropriate if patient starts to desaturate overnight. 2. Lack of primary care/delayed presentation Complicates care, management, recovery and prognosis. Patient's blood pressure is elevated and glucose was noted to be 114. We will need to watch for complications of Decadron therapy including hypertension and hyperglycemia. Subjective Subjective Patient did okay overnight. Patient subjectively feels unchanged compared to previous. Patient states he has attempted some prone positioning and has been using the Acapella and incentive spirometer. Patient is not reporting any chest pain or epistaxis. Patient has had some dry eyes. Objective Data Objective Data Vital Signs: Vital Signs Temp Pulse Resp BP Pulse Ox 36.6 C 77 18 142/85 H 93 03/11/21 02:57 03/11/21 02:57 03/11/21 02:57 03/11/21 02:57 03/11/21 03:00 Oxygen Flow Rate (L/min) 12 Oxygen Delivery Method Nasal Cannula Weight: 72.8 kg Body Mass Index (BMI) 27.3 Intake & Output: Intake and Output for Last 24 Hours 03/09/21 03/10/21 03/11/21 23:59 23:59 23:59 Intake Total 100 / 100 720 / 720 Output Total 150 / 150 Balance -50 / -50 720 / 720 Lab / Micro Data Result Diagrams: 03/10/21 07:12 03/11/21 05:49 Labs: Laboratory Results - last 24 hr 03/08/21 21:30: Diff Path Review Reviewed 03/10/21 07:12: Sodium 135 L, Potassium 3.9, Chloride 100, Carbon Dioxide 28.0, Anion Gap 7, BUN 24 H, Creatinine 0.77, Estim Creat Clear Calc 99.31, Est GFR (MDRD) Af Amer 139, Est GFR (MDRD) Non-Af 115, BUN/Creatinine Ratio 31.1 H, Glucose 114 H, Calcium 8.7 03/11/21 05:49: Sodium 136, Potassium 4.1, Chloride 100, Carbon Dioxide 29.0, Anion Gap 7, BUN 23 H, Creatinine 0.75, Estim Creat Clear Calc 101.96, Est GFR (MDRD) Af Amer 143, Est GFR (MDRD) Non-Af 118, BUN/Creatinine Ratio 30.5 H, Glucose 100, Calcium 8.7 Micro: Microbiology 03/09/21 20:55 Sputum, Expectorated/Coughed Gram Stain - Final 03/09/21 20:55 Sputum, Expectorated/Coughed Respiratory Culture - Preliminary Appears to be normal respiratory ramón. Further studies to follow. 03/08/21 21:30 Nasal Secretion SARS-CoV-2 Antigen (Rapid) - Final SARS-CoV-2 (COVID 19) Physical Exam Const alert, oriented x3 and no apparent distress General Appearance: cooperative HEENT normocephalic Mouth: dry mucous membranes Eyes PERRL and EOMs intact bilaterally Eyes Narrative: Slight scleral injection noted Neck supple and no JVD Chest inspection of chest normal Chest: symmetrical chest wall rise; Negative for crepitus Resp no retractions and no use of accessory muscles Auscultation: rales diffuse and diminished lung sounds; Negative for rhonchi or wheezes Cardio regular rate, regular rhythm, S1 normal heart sound, S2 normal heart sound and no murmurs GI soft to palpation, non-tender and non-distended; Negative for hepatosplenomegaly Extremity no clubbing, cyanosis or edema Skin no rashes or lesions noted Neuro no focal motor deficits and no sensory deficits noted Psych affect normal Appearance: appropriate Charges/Coding Visit Charges Inpatient E&M: 30056 Subs Hosp L3
[2021-03-11] MEDS: dexAMETHasone 4 MG Tablet 6 MG PO (08:32)
[2021-03-11] MEDS: Enoxaparin 40 MG/0.4 ML Syringe SC (08:32)
[2021-03-11] MEDS: amLODIPine 5 MG Tablet PO (08:33)
[2021-03-11] MEDS: guaiFENesin 1,200 MG Tablet 1200 MG PO ×2 (08:33→22:09)
[2021-03-11] MEDS: Furosemide 40 MG Tablet PO (08:33)
[2021-03-11 09:18] LABS: Pathologist Review Reviewed
--- NOTE | 2021-03-11 14:51 | PCM.PN.HOSP ---
Subjective Subjective Breathing remains unchanged. He is doing with between 10 and 13 L today. Tolerated diuresis this morning okay but he is unsure whether or not it helped his respiratory status. Objective Data Objective Data Vital Signs: Vital Signs Temp Pulse Resp BP Pulse Ox 97.8 F 106 H 18 122/76 H 93 03/11/21 12:46 03/11/21 12:46 03/11/21 12:46 03/11/21 12:46 03/11/21 12:46 Oxygen Flow Rate (L/min) 13 Oxygen Delivery Method Nasal Cannula Weight: 160 lb 7.944 oz Body Mass Index (BMI) 27.3 Intake & Output: Intake and Output for Last 24 Hours 03/10/21 03/11/21 03/12/21 03:59 03:59 03:59 Intake Total 100 / 100 720 / 720 1500 / 1500 Output Total 150 / 150 Balance -50 / -50 720 / 720 1500 / 1500 Lab / Micro Data Result Diagrams: 03/10/21 07:12 03/11/21 05:49 Labs: Laboratory Results - last 24 hr 03/09/21 05:28: Diff Path Review Reviewed 03/11/21 05:49: Sodium 136, Potassium 4.1, Chloride 100, Carbon Dioxide 29.0, Anion Gap 7, BUN 23 H, Creatinine 0.75, Estim Creat Clear Calc 101.96, Est GFR (MDRD) Af Amer 143, Est GFR (MDRD) Non-Af 118, BUN/Creatinine Ratio 30.5 H, Glucose 100, Calcium 8.7 Micro: Microbiology 03/09/21 20:55 Sputum, Expectorated/Coughed Gram Stain - Final 03/09/21 20:55 Sputum, Expectorated/Coughed Respiratory Culture - Preliminary Appears to be normal respiratory ramón. Further studies to follow. 03/08/21 21:30 Nasal Secretion SARS-CoV-2 Antigen (Rapid) - Final SARS-CoV-2 (COVID 19) Physical Exam Const alert, oriented x3 and no apparent distress General Appearance: cooperative HEENT normocephalic and moist oral mucous membranes Eyes PERRL, EOMs intact bilaterally and conjunctivae normal Neck supple and no JVD Resp normal respiratory effort, no retractions and no use of accessory muscles Auscultation: Negative for crackles, rales, rhonchi or wheezes Cardio regular rate, regular rhythm, S1 normal heart sound, S2 normal heart sound and no murmurs GI soft to palpation, non-tender and non-distended; Negative for hepatosplenomegaly Extremity no clubbing, cyanosis or edema Skin no rashes or lesions noted Neuro no focal motor deficits and no sensory deficits noted Psych affect normal Appearance: appropriate Assessment & Plan Assessment/Plan (1) Acute respiratory failure with hypoxia: (2) Pneumonia due to 2019 novel coronavirus: (3) Elevated blood pressure reading without diagnosis of hypertension: PLAN: 1. Acute hypoxic respiratory failure secondary to COVID-19 pneumonia -He is more than 10 days out from onset of symptoms which was February 25 -Continue with Decadron but does not qualify remdesivir at this time -Continue with oxygen and will monitor. He is unvaccinated -CT of the chest was negative for PE -Appreciate pulmonology assistance -Continue with Lasix as needed -Continue to encourage proning 2. Hypertension -He does not have this diagnosis as an outpatient while here we will place him on Norvasc as his symptoms improve if his blood pressure improves can take him off and have him follow-up as an outpatient DVT: Lovenox
[2021-03-11] MEDS: Sodium Chloride 0.65% 1 SPRAY SPRAY.BTL 2 SPRAY NASAL (22:09)
[2021-03-12] VITALS (10 sets, daily range): BP systolic 108–139; BP diastolic 67–88; PULSE 61–85; RESP 18; TEMP 36.2–37.1; O2SAT 93–96
[2021-03-12] MEDS: Albuterol 2.5 MG/3 ML VIAL.NEB. INHALATION (01:51)
[2021-03-12] MEDS: Sodium Chloride 0.65% 1 SPRAY SPRAY.BTL 2 SPRAY NASAL (04:50)
--- NOTE | 2021-03-12 08:06 | PCM.PN.INT ---
Assessment & Plan Assessment/Plan (1) Acute respiratory failure with hypoxia: (2) Pneumonia due to 2019 novel coronavirus: (3) Elevated blood pressure reading without diagnosis of hypertension: PLAN: RECOMMENDATIONS: 1. Continue Decadron (03/19/2021) 2. Not a candidate for baricitinib or remdesivir given delayed presentation 3. Diuresis as tolerated. Await morning labs 4. Wean oxygen as tolerated while keeping saturations greater than 90% 5. Avoid SHON inhibitor for hypertension if possible IMPRESSIONS: 1. Acute hypoxic respiratory failure secondary to COVID-19 Patient with extensive bilateral infiltrates noted on chest x-ray. Unfortunately, patient was very delayed in presentation, so treatment options are limited. Patient will be continued on Decadron therapy. Patient would not qualify for remdesivir or baricitinib secondary to delayed presentation. Recheck renal function daily in the morning to facilitate diuretic dosing. Did verify patient is a full code, so intubation cannot be excluded. Patient has been maintaining his saturations on nasal cannula with sleep. Continue to encourage conservative measures such as Acapella, incentive spirometer and prone positioning as patient tolerates. 2. Lack of primary care/delayed presentation Complicates care, management, recovery and prognosis. Patient's blood pressure is elevated and glucose was noted to be 114. We will need to watch for complications of Decadron therapy including hypertension and hyperglycemia. Subjective Subjective Patient did okay overnight. Patient states he slept well and has a good appetite. Patient denies any epistaxis. Patient has continued to have a cough. Patient has remained stable on nasal cannula and does reportedly attempt prone positioning intermittently. Objective Data Objective Data Vital Signs: Vital Signs Temp Pulse Resp BP Pulse Ox 36.8 C 74 18 139/87 H 93 03/12/21 04:45 03/12/21 04:45 03/12/21 04:45 03/12/21 04:45 03/12/21 04:45 Oxygen Flow Rate (L/min) 11 Oxygen Delivery Method Nasal Cannula Weight: 72.8 kg Body Mass Index (BMI) 27.3 Intake & Output: Intake and Output for Last 24 Hours 03/10/21 03/11/21 03/12/21 23:59 23:59 23:59 Intake Total 720 / 720 2100 / 2100 Balance 720 / 720 2100 / 2100 Lab / Micro Data Result Diagrams: 03/10/21 07:12 03/11/21 05:49 Labs: Laboratory Results - last 24 hr 03/09/21 05:28: Diff Path Review Reviewed Micro: Microbiology 03/09/21 20:55 Sputum, Expectorated/Coughed Gram Stain - Final 03/09/21 20:55 Sputum, Expectorated/Coughed Respiratory Culture - Final 03/08/21 21:30 Nasal Secretion SARS-CoV-2 Antigen (Rapid) - Final SARS-CoV-2 (COVID 19) Physical Exam Const alert, oriented x3 and no apparent distress General Appearance: cooperative HEENT normocephalic Mouth: dry mucous membranes Eyes PERRL and EOMs intact bilaterally Eyes Narrative: Slight scleral injection noted Neck supple and no JVD Chest inspection of chest normal Chest: symmetrical chest wall rise; Negative for crepitus Resp no retractions and no use of accessory muscles Auscultation: rales diffuse and diminished lung sounds; Negative for rhonchi or wheezes Cardio regular rate, regular rhythm, S1 normal heart sound, S2 normal heart sound and no murmurs GI soft to palpation, non-tender and non-distended; Negative for hepatosplenomegaly Extremity no clubbing, cyanosis or edema Skin no rashes or lesions noted Neuro no focal motor deficits and no sensory deficits noted Psych affect normal Appearance: appropriate Charges/Coding Visit Charges Inpatient E&M: 82284 Subs Hosp L2
[2021-03-12 08:26] LABS: Anion Gap 8 (5-15); BUN 22 mg/dL (7-18); BUN/Creat Ratio 28.8 RATIO (10-20); Calcium,Total 8.3 mg/dL (8.5-10.1); Chloride 102 mmol/L (98-107); Creatinine, Serum 0.76 mg/dL (0.70-1.30); EST Glomerular Filtration Rate 116 mL/min (>60); Est Glom Filt Rate - Afr Amer 140 mL/min (>60); Estimated Creatinine Clearance 100.61 ml/min; Glucose 86 mg/dL (74-106); Potassium 4.1 mmol/L (3.5-5.1); Sodium Level 137 mmol/L (136-145)
[2021-03-12] MEDS: Furosemide 40 MG/4 ML Vial IV (09:29)
[2021-03-12] MEDS: amLODIPine 5 MG Tablet PO (09:29)
[2021-03-12] MEDS: Enoxaparin 40 MG/0.4 ML Syringe SC (09:29)
[2021-03-12] MEDS: dexAMETHasone 4 MG Tablet 6 MG PO (09:29)
[2021-03-12] MEDS: guaiFENesin 1,200 MG Tablet 1200 MG PO ×2 (09:29→21:16)
[2021-03-12] MEDS: 0.9% Saline Lock 10 ML Syringe IV ×2 (09:30→21:16)
--- NOTE | 2021-03-12 12:15 | PCM.PN.HOSP ---
Subjective Subjective Doing well, oxygen status is remaining stable. Objective Data Objective Data Vital Signs: Vital Signs Temp Pulse Resp BP Pulse Ox 98.7 F 81 18 137/88 H 93 03/12/21 09:36 03/12/21 09:36 03/12/21 10:00 03/12/21 09:36 03/12/21 04:45 Oxygen Flow Rate (L/min) 11 Oxygen Delivery Method Nasal Cannula Weight: 160 lb 7.944 oz Body Mass Index (BMI) 27.3 Intake & Output: Intake and Output for Last 24 Hours 03/11/21 03/12/21 03/13/21 03:59 03:59 03:59 Intake Total 720 / 720 2100 / 2100 Balance 720 / 720 2100 / 2100 Lab / Micro Data Result Diagrams: 03/10/21 07:12 03/12/21 07:14 Labs: Laboratory Results - last 24 hr 03/12/21 07:14: Sodium 137, Potassium 4.1, Chloride 102, Carbon Dioxide 27.0, Anion Gap 8, BUN 22 H, Creatinine 0.76, Estim Creat Clear Calc 100.61, Est GFR (MDRD) Af Amer 140, Est GFR (MDRD) Non-Af 116, BUN/Creatinine Ratio 28.8 H, Glucose 86, Calcium 8.3 L Micro: Microbiology 03/09/21 20:55 Sputum, Expectorated/Coughed Gram Stain - Final 03/09/21 20:55 Sputum, Expectorated/Coughed Respiratory Culture - Final 03/08/21 21:30 Nasal Secretion SARS-CoV-2 Antigen (Rapid) - Final SARS-CoV-2 (COVID 19) Physical Exam Const alert, oriented x3 and no apparent distress General Appearance: cooperative HEENT normocephalic and moist oral mucous membranes Eyes PERRL, EOMs intact bilaterally and conjunctivae normal Neck supple and no JVD Resp normal respiratory effort, no retractions and no use of accessory muscles Auscultation: Negative for crackles, rales, rhonchi or wheezes Cardio regular rate, regular rhythm, S1 normal heart sound, S2 normal heart sound and no murmurs GI soft to palpation, non-tender and non-distended; Negative for hepatosplenomegaly Extremity no clubbing, cyanosis or edema Skin no rashes or lesions noted Neuro no focal motor deficits and no sensory deficits noted Psych affect normal Appearance: appropriate Assessment & Plan Assessment/Plan (1) Acute respiratory failure with hypoxia: (2) Pneumonia due to 2019 novel coronavirus: (3) Elevated blood pressure reading without diagnosis of hypertension: PLAN: 1. Acute hypoxic respiratory failure secondary to COVID-19 pneumonia -He is more than 10 days out from onset of symptoms which was February 25 -Continue with Decadron but does not qualify remdesivir at this time -Continue with oxygen and will monitor. He is unvaccinated -CT of the chest was negative for PE -Appreciate pulmonology assistance -Continue with Lasix as needed -Continue to encourage proning -Quarantine completed in 03/16/2021 2. Hypertension -He does not have this diagnosis as an outpatient while here we will place him on Norvasc as his symptoms improve if his blood pressure improves can take him off and have him follow-up as an outpatient DVT: Patnox Charges/Coding Visit Charges Inpatient E&M: 36960 Subs Hosp L2
[2021-03-12] MEDS: MELATONIN 3 MG TABLET PO (21:16)
[2021-03-13] VITALS (7 sets, daily range): BP systolic 106–126; BP diastolic 61–78; PULSE 60–97; RESP 16–20; TEMP 36.5–37.4; O2SAT 92–95
[2021-03-13 07:45] LABS: Anion Gap 8 (5-15); BUN 23 mg/dL (7-18); BUN/Creat Ratio 32.2 RATIO (10-20); Calcium,Total 8.1 mg/dL (8.5-10.1); Chloride 101 mmol/L (98-107); Creatinine, Serum 0.71 mg/dL (0.70-1.30); EST Glomerular Filtration Rate 125 mL/min (>60); Est Glom Filt Rate - Afr Amer 152 mL/min (>60); Glucose 92 mg/dL (74-106); Sodium Level 135 mmol/L (136-145)
--- NOTE | 2021-03-13 08:14 | PCM.PN.INT ---
Assessment & Plan Assessment/Plan (1) Acute respiratory failure with hypoxia: (2) Pneumonia due to 2019 novel coronavirus: (3) Elevated blood pressure reading without diagnosis of hypertension: PLAN: RECOMMENDATIONS: 1. Continue Decadron (03/19/2021) 2. Not a candidate for baricitinib or remdesivir given delayed presentation 3. Diuresis as tolerated. Will dose today 4. Wean oxygen as tolerated while keeping saturations greater than 90% 5. Avoid SHON inhibitor for hypertension if possible as this could complicate diuretics IMPRESSIONS: 1. Acute hypoxic respiratory failure secondary to COVID-19 Patient with extensive bilateral infiltrates noted on chest x-ray. Unfortunately, patient was very delayed in presentation, so treatment options are limited. Patient will be continued on Decadron therapy. Patient would not qualify for remdesivir or baricitinib secondary to delayed presentation. Recheck renal function daily in the morning to facilitate diuretic dosing. Patient has been maintaining his saturations on nasal cannula with sleep. Continue to encourage conservative measures such as Acapella, incentive spirometer and prone positioning as patient tolerates. 2. Lack of primary care/delayed presentation Complicates care, management, recovery and prognosis. Patient's blood pressure is elevated and glucose was noted to be 114. We will need to watch for complications of Decadron therapy including hypertension and hyperglycemia. Subjective Subjective Patient did well overnight. No acute issues were reported. Patient overall feels subjectively slightly improved compared to previous. Patient is not reporting any chest pain, abdominal pain, nausea or vomiting. Objective Data Objective Data Vital Signs: Vital Signs Temp Pulse Resp BP Pulse Ox 36.6 C 66 18 119/78 94 03/13/21 02:36 03/13/21 02:36 03/13/21 02:36 03/13/21 02:36 03/13/21 02:36 Oxygen Flow Rate (L/min) 9 Oxygen Delivery Method Nasal Cannula Weight: 72.8 kg Body Mass Index (BMI) 27.3 Intake & Output: Intake and Output for Last 24 Hours 03/11/21 03/12/21 03/13/21 23:59 23:59 23:59 Intake Total 2100 / 2100 2600 / 2600 Balance 2100 / 2100 2600 / 2600 Lab / Micro Data Result Diagrams: 03/10/21 07:12 03/13/21 06:15 Labs: Laboratory Results - last 24 hr 03/12/21 07:14: Sodium 137, Potassium 4.1, Chloride 102, Carbon Dioxide 27.0, Anion Gap 8, BUN 22 H, Creatinine 0.76, Estim Creat Clear Calc 100.61, Est GFR (MDRD) Af Amer 140, Est GFR (MDRD) Non-Af 116, BUN/Creatinine Ratio 28.8 H, Glucose 86, Calcium 8.3 L 03/13/21 06:15: Sodium 135 L, Potassium 4.0, Chloride 101, Carbon Dioxide 26.0, Anion Gap 8, BUN 23 H, Creatinine 0.71, Estim Creat Clear Calc 107.70, Est GFR (MDRD) Af Amer 152, Est GFR (MDRD) Non-Af 125, BUN/Creatinine Ratio 32.2 H, Glucose 92, Calcium 8.1 L Micro: Microbiology 03/09/21 20:55 Sputum, Expectorated/Coughed Gram Stain - Final 03/09/21 20:55 Sputum, Expectorated/Coughed Respiratory Culture - Final 03/08/21 21:30 Nasal Secretion SARS-CoV-2 Antigen (Rapid) - Final SARS-CoV-2 (COVID 19) Physical Exam Const alert, oriented x3 and no apparent distress General Appearance: cooperative HEENT normocephalic Mouth: dry mucous membranes Eyes PERRL and EOMs intact bilaterally Eyes Narrative: Slight scleral injection noted Neck supple and no JVD Chest inspection of chest normal Chest: symmetrical chest wall rise; Negative for crepitus Resp no retractions and no use of accessory muscles Auscultation: rales diffuse and diminished lung sounds; Negative for rhonchi or wheezes Cardio regular rate, regular rhythm, S1 normal heart sound, S2 normal heart sound and no murmurs GI soft to palpation, non-tender and non-distended; Negative for hepatosplenomegaly Extremity no clubbing, cyanosis or edema Skin no rashes or lesions noted Neuro no focal motor deficits and no sensory deficits noted Psych affect normal Appearance: appropriate Charges/Coding Visit Charges Inpatient E&M: 54217 Subs Hosp L2
[2021-03-13] MEDS: Enoxaparin 40 MG/0.4 ML Syringe SC (08:40)
[2021-03-13] MEDS: amLODIPine 5 MG Tablet PO (08:41)
[2021-03-13] MEDS: dexAMETHasone 4 MG Tablet 6 MG PO (08:41)
[2021-03-13] MEDS: guaiFENesin 1,200 MG Tablet 1200 MG PO ×2 (08:41→21:02)
[2021-03-13] MEDS: Furosemide 40 MG Tablet PO ×2 (11:30→16:54)
--- NOTE | 2021-03-13 11:43 | PN.HOSP_ITS ---
Subjective Subjective No issues overnight, doing well. 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 Objective Data Objective Data Vital Signs: Vital Signs Temp Pulse Resp BP Pulse Ox 99.3 F H 72 20 H 110/61 94 03/13/21 08:33 03/13/21 11:28 03/13/21 08:33 03/13/21 11:28 03/13/21 02:36 Oxygen Flow Rate (L/min) 9 Oxygen Delivery Method Nasal Cannula Weight: 160 lb 7.944 oz Body Mass Index (BMI) 27.3 Intake & Output: Intake and Output for Last 24 Hours 03/12/21 03/13/21 03/14/21 03:59 03:59 03:59 Intake Total 2099 / 2099 2600 / 2600 Balance 2099 2600 / 2600 Lab / Micro Data Result Diagrams: 03/10/21 07:12 03/13/21 06:15 Labs: Laboratory Results - last 24 hr 03/13/21 06:15: Sodium 135 L, Potassium 4.0, Chloride 101, Carbon Dioxide 26.0, Anion Gap 8, BUN 23 H, Creatinine 0.71, Estim Creat Clear Calc 107.70, Est GFR (MDRD) Af Amer 152, Est GFR (MDRD) Non-Af 125, BUN/Creatinine Ratio 32.2 H, Glucose 92, Calcium 8.1 L Micro: Microbiology 03/09/21 20:55 Sputum, Expectorated/Coughed Gram Stain - Final 03/09/21 20:55 Sputum, Expectorated/Coughed Respiratory Culture - Final 03/08/21 21:30 Nasal Secretion SARS-CoV-2 Antigen (Rapid) - Final SARS-CoV-2 (COVID 19) Physical Exam Const alert, oriented x3 and no apparent distress General Appearance: cooperative HEENT normocephalic and moist oral mucous membranes Eyes PERRL, EOMs intact bilaterally and conjunctivae normal Neck supple and no JVD Resp normal respiratory effort, no retractions and no use of accessory muscles Auscultation: rales; Negative for crackles, rhonchi or wheezes Cardio regular rate, regular rhythm, S1 normal heart sound, S2 normal heart sound and no murmurs GI soft to palpation, non-tender and non-distended; Negative for hepatosplenomegaly Extremity no clubbing, cyanosis or edema Skin no rashes or lesions noted Neuro no focal motor deficits and no sensory deficits noted Psych affect normal Appearance: appropriate Assessment & Plan Assessment/Plan (1) Acute respiratory failure with hypoxia: (2) Pneumonia due to 2019 novel coronavirus: (3) Elevated blood pressure reading without diagnosis of hypertension: PLAN: 1. Acute hypoxic respiratory failure secondary to COVID-19 pneumonia -He is more than 10 days out from onset of symptoms which was February 25 -Continue with Decadron but does not qualify remdesivir or baricitinib at this time -Continue with oxygen and will monitor. He is unvaccinated -CT of the chest was negative for PE -Appreciate pulmonology assistance -Continue with Lasix as needed -Continue to encourage proning -Quarantine completed in 03/16/2021 2. Hypertension -He does not have this diagnosis as an outpatient while here we will place him on Norvasc as his symptoms improve if his blood pressure improves can take him off and have him follow-up as an outpatient DVT: Patnox Charges/Coding Visit Charges Inpatient E&M: 95334 Subs Hosp L2
[2021-03-13] MEDS: MELATONIN 3 MG TABLET PO (21:02)
[2021-03-14 02:49] VITALS: BP 114/69; PULSE 53; RESP 18; TEMP 36.6; O2SAT 97
[2021-03-14 06:46] LABS: Anion Gap 9 (5-15); BUN 25 mg/dL (7-18); BUN/Creat Ratio 33.6 RATIO (10-20); Calcium,Total 8.4 mg/dL (8.5-10.1); Chloride 104 mmol/L (98-107); Creatinine, Serum 0.74 mg/dL (0.70-1.30); EST Glomerular Filtration Rate 120 mL/min (>60); Est Glom Filt Rate - Afr Amer 145 mL/min (>60); Estimated Creatinine Clearance 103.33 ml/min; Glucose 104 mg/dL (74-106); Potassium 4.2 mmol/L (3.5-5.1); Sodium Level 135 mmol/L (136-145)
[2021-03-14] MEDS: Enoxaparin 40 MG/0.4 ML Syringe SC (09:55)
[2021-03-14] MEDS: guaiFENesin 1,200 MG Tablet 1200 MG PO ×2 (09:56→20:59)
[2021-03-14] MEDS: dexAMETHasone 4 MG Tablet 6 MG PO (09:56)
[2021-03-14 09:59] VITALS: BP 97/64; PULSE 77; RESP 18; TEMP 36.6; O2SAT 94
[2021-03-14 10:26] VITALS: O2SAT 86; O2SAT 90
--- NOTE | 2021-03-14 14:48 | PN.HOSP_ITS ---
Subjective Subjective Patient seen and examined. He said he felt his shortness of breath was improving today. He had no active complaints and review of systems otherwise negative. Review of sounds otherwise negative. He was on 4 L of oxygen at time of review. Objective Data Objective Data Vital Signs: Vital Signs Temp Pulse Resp BP Pulse Ox 97.9 F 77 18 97/64 90 03/14/21 09:59 03/14/21 09:59 03/14/21 09:59 03/14/21 09:59 03/14/21 10:26 Oxygen Flow Rate (L/min) [ 4 AMBULATING with Oxygen #1] Oxygen Flow Rate (L/min) [At 0 REST on Room Air] Oxygen Flow Rate (L/min) [At 4 REST with Oxygen] Oxygen Flow Rate (L/min) 4 Oxygen Delivery Method Nasal Cannula Weight: 160 lb 7.944 oz Body Mass Index (BMI) 27.3 Intake & Output: Intake and Output for Last 24 Hours 03/12/21 03/13/21 03/14/21 23:59 23:59 23:59 Intake Total 2600 / 2600 450 / 450 Balance 2600 / 2600 450 / 450 Lab / Micro Data Result Diagrams: 03/10/21 07:12 03/14/21 05:36 Labs: Laboratory Results - last 24 hr 03/14/21 05:36: Sodium 135 L, Potassium 4.2, Chloride 104, Carbon Dioxide 22.0, Anion Gap 9, BUN 25 H, Creatinine 0.74, Estim Creat Clear Calc 103.33, Est GFR (MDRD) Af Amer 145, Est GFR (MDRD) Non-Af 120, BUN/Creatinine Ratio 33.6 H, Glucose 104, Calcium 8.4 L Micro: Microbiology 03/09/21 20:55 Sputum, Expectorated/Coughed Gram Stain - Final 03/09/21 20:55 Sputum, Expectorated/Coughed Respiratory Culture - Final 03/08/21 21:30 Nasal Secretion SARS-CoV-2 Antigen (Rapid) - Final SARS-CoV-2 (COVID 19) Physical Exam Const alert, oriented x3 and no apparent distress Exam Limitations: no limitations HEENT head/scalp atraumatic and moist oral mucous membranes Head and Scalp: normocephalic Eyes PERRL, EOMs intact bilaterally and conjunctivae normal Neck no lymphadenopathy Resp Resp Narrative: Diminished breath sounds bibasilarly. No wheezes or crackles. On 4 L of oxygen by nasal cannula. Cardio regular rate, regular rhythm, S1 normal heart sound, S2 normal heart sound and no murmurs GI normal to inspection, nondistended, normoactive bowel sounds, soft to palpation, non-tender, non-distended and hepatosplenomegaly Extremity normal to inspection, full ROM and no clubbing, cyanosis or edema Peripheral Pulses: Yes pulses 2+ throughout Skin no rashes or lesions noted Neuro oriented x3, CN's II-XII intact bilaterally and moves all extremities Sensorium / Orientation: awake and alert Psych affect normal Assessment & Plan Assessment/Plan (1) Acute respiratory failure with hypoxia: (2) Pneumonia due to 2019 novel coronavirus: (3) Elevated blood pressure reading without diagnosis of hypertension: PLAN: #Acute hypoxic respiratory failure due to COVID 19 pneumonia * symptoms started February 25, so he is not in the time frame for remdesivir or baricitinib * titrate oxygen to maintain sats>90% * on decaderon. * CTA negative for PE * pulmonology on board * breathing treatment with bronchodilators * lasix prn to maintain euvolemic status * to be in isolation till 03/17/2021 #Elevated BP * He was started on p.o. amlodipine on account of elevated blood pressure. Blood pressure today is running at 97/64. Will monitor BP closely and start medication as needed to continue it. * DVT prophylaxis: Lovenox Disposition: For likely discharge home tomorrow. Charges/Coding Visit Charges Inpatient E&M: 17758 Subs Hosp L2
[2021-03-14 15:26] VITALS: BP 148/101; PULSE 87; RESP 18; TEMP 36.4; O2SAT 95
[2021-03-14 16:58] VITALS: O2SAT 95
[2021-03-14 20:53] VITALS: BP 131/82; PULSE 83; RESP 18; TEMP 36.4; O2SAT 95
[2021-03-14] MEDS: MELATONIN 3 MG TABLET PO (20:59)
[2021-03-15 02:42] VITALS: BP 106/64; PULSE 58; RESP 18; TEMP 36.6; O2SAT 97
[2021-03-15 06:42] LABS: Hematocrit 39.9 % (40-54); Hemoglobin 13.4 g/dL (13.0-16.5); Mean Corp Hgb Conc 33.6 g/dL (32-36); Mean Corpuscular Hgb 30.9 pg (27.0-32.0); Mean Corpuscular Volume 92.1 fL (80-94); POSITIVE COUNT YES; POSITIVE MORPHOLOGY YES; Platelet Count 394 K/mm3 (150-450); RBC Distribution Width CV 11.8 % (11.6-14.6); RBC Distribution Width SD 39.8 fl (35.1-43.9); Red Blood Count 4.33 M/mm3 (4.6-6.2); White Blood Count 9.2 K/mm3 (4.4-11.0)
[2021-03-15 07:00] LABS: Differential Indicated MANUAL DIFF
[2021-03-15 07:11] LABS: Anion Gap 6 (5-15); BUN 27 mg/dL (7-18); BUN/Creat Ratio 38.9 RATIO (10-20); Calcium,Total 8.1 mg/dL (8.5-10.1); Chloride 109 mmol/L (98-107); Creatinine, Serum 0.69 mg/dL (0.70-1.30); EST Glomerular Filtration Rate 130 mL/min (>60); Est Glom Filt Rate - Afr Amer 157 mL/min (>60); Estimated Creatinine Clearance 110.82 ml/min; Glucose 100 mg/dL (74-106); Potassium 4.8 mmol/L (3.5-5.1); Sodium Level 138 mmol/L (136-145)
[2021-03-15 07:12] LABS: Absolute Neutrophil Count 6.6 X10^3/uL (2.0-7.7)
[2021-03-15 07:13] LABS: Absolute Lymphocyte Count 1.47 X10^3/uL (0.83-4.51); Lymphocyte 16 % (19-41); Monocyte 10 % (0-10); Myelocyte 1 % (0-0); Neutrophil-Band 4 % (0-5); Neutrophil-Segmented 68 % (47-70); Promyelocyte 1 % (0-0)
[2021-03-15 07:14] LABS: Platelet Estimate ADEQUATE (ADEQ); Red Cell Morphology NORM C+C NORMAL (NORM C&C)
[2021-03-15] MEDS: Enoxaparin 40 MG/0.4 ML Syringe SC (10:25)
[2021-03-15] MEDS: guaiFENesin 1,200 MG Tablet 1200 MG PO (10:26)
[2021-03-15] MEDS: dexAMETHasone 4 MG Tablet 6 MG PO (10:26)
[2021-03-15 10:29] VITALS: BP 112/65; PULSE 87; RESP 18; TEMP 36.8; O2SAT 95
[2021-03-15 10:47] VITALS: O2SAT 87; O2SAT 88; O2SAT 91; O2SAT 92
--- NOTE | 2021-03-15 11:31 | PCM.DC.SUM ---
Providers Date of Admission: 03/09/21 Primary Care Physician: Dr. Matt Griffin MD Consultations 03/10/21 08:26 Consult: Industrial Psychology Teacher / Pulmonary Medicine Routine Consulting Provider: Maycol Espinoza Reason for Consult: COVID EMERGENT Consult: No MD Notified: Yes Date Notified: 03/10/21 Time Notified: 08:26 Method of Notification: text via cortext Reason For Visit: ACUTE RESPIRATORY FAILURE Diagnosis Discharge Diagnosis (1) Acute respiratory failure with hypoxia: Status: Acute Code(s): J96.01 - Acute respiratory failure with hypoxia (2) Pneumonia due to 2019 novel coronavirus: Status: Acute Code(s): U07.1 - COVID-19; J12.82 - Pneumonia due to coronavirus disease 2019 (3) Elevated blood pressure reading without diagnosis of hypertension: Status: Acute Code(s): R03.0 - Elevated blood-pressure reading, without diagnosis of hypertension Medications at Discharge Home Medications amlodipine 5 mg PO DAILY #30 tab 03/15/21 dexamethasone 6 mg PO DAILY #3 tab 03/15/21 guaifenesin [Mucinex] 1,200 mg PO BID PRN #30 tab 03/15/21 Hospital Course Operations None Procedures None Summary of Care Provided Minutes Spent on Discharge: 45 Hospital Course: Patient is a 45-year-old male with no significant past medical history was admitted through the ED on 03/09/2021 with a complaint of nasal congestion, cough, fatigue and diarrhea. Patient was not vaccinated against COVID-19 pneumonia. His symptoms started on February 25 and had gradually progressed. He was tachypneic on admission and he required 8 L of oxygen to maintain saturation of 92%. He was also noted to be hypertensive but not tachycardic. Initial lab work-up showed hemoglobin of 14.6 and WBC of 7.4 and chemistry was unremarkable. Chest x-ray showed bilateral infiltrates. Covid test done was positive. He was admitted and managed for acute hypoxic respiratory failure due to COVID-19 pneumonia. He was started on Decadron. He was not a candidate for remdesivir or baricitinib due to delayed presentation. He was given Lasix as needed to help with euvolemic status. Patient's shortness of breath gradually improved and he felt better. He was weaned down to 3 to 4 L of oxygen. On 03/15/2021, patient had a walking pulse ox which showed that he required 4 L of oxygen to maintain saturation above 90% with ambulation. Of note, patient was also started on amlodipine during this admission on account of elevated blood pressure. He remained stable and was discharged home on 03/15/2021 on 4 L of oxygen. He is to remain in self-isolation till 03/17/2021 and is to follow-up with his primary care doctor in 1 to 2 weeks. He is also to follow-up with pulmonology. Patient seen and examined prior to discharge. He felt much better and was enthusiastic about being discharged. Review of systems otherwise negative. Labs and vitals reviewed. Medication reviewed and reconciled. Physical Exam Const alert, oriented x3 and no apparent distress General Appearance: cooperative Exam Limitations: no limitations HEENT normocephalic, head/scalp atraumatic and moist oral mucous membranes Eyes PERRL, EOMs intact bilaterally and conjunctivae normal Neck no lymphadenopathy, supple and no JVD Resp normal respiratory effort, no retractions and no use of accessory muscles Resp Narrative: Diminished breath sounds bibasilarly. No wheezes or crackles. On 3 L of oxygen by nasal cannula. Auscultation: rales; Negative for crackles, rhonchi or wheezes Cardio regular rate, regular rhythm, S1 normal heart sound, S2 normal heart sound and no murmurs GI normal to inspection, nondistended, normoactive bowel sounds, soft to palpation, non-tender, non-distended and hepatosplenomegaly Extremity normal to inspection, full ROM and no clubbing, cyanosis or edema Skin no rashes or lesions noted Neuro oriented x3, CN's II-XII intact bilaterally, moves all extremities, no focal motor deficits and no sensory deficits noted Sensorium / Orientation: awake and alert Psych affect normal Appearance: appropriate Weight / BMI Weight Weight: 160 lb 7.944 oz Body Mass Index (BMI) 27.3 ABG / Lab / Microbiology Data Result Diagrams: 03/15/21 06:34 03/15/21 06:34 Laboratory: Laboratory Results - last 24 hr 03/15/21 06:34: WBC 9.2, RBC 4.33 L, Hgb 13.4, Hct 39.9 L, MCV 92.1, MCH 30.9, MCHC 33.6, RDW Std Deviation 39.8, RDW Coeff of Herrera 11.8, Plt Count 394, MPV 10.0, Neut % (Auto) Not Reportable, Absolute Neuts (auto) 6.6, Absolute Lymphs (auto) 1.47, Neutrophils % (Manual) 68, Band Neutrophils % 4, Lymphocytes % (Manual) 16 L, Monocytes % (Manual) 10, Myelocytes % 1 H, Promyelocytes % 1 H, Diff Path Review September, Platelet Estimate ADEQUATE, RBC Morphology NORM C+C 03/15/21 06:34: Sodium 138, Potassium 4.8, Chloride 109 H, Carbon Dioxide 23.0, Anion Gap 6, BUN 27 H, Creatinine 0.69 L, Estim Creat Clear Calc 110.82, Est GFR (MDRD) Af Amer 157, Est GFR (MDRD) Non-Af 130, BUN/Creatinine Ratio 38.9 H, Glucose 100, Calcium 8.1 L Microbiology: Microbiology 03/09/21 20:55 Sputum, Expectorated/Coughed Gram Stain - Final 03/09/21 20:55 Sputum, Expectorated/Coughed Respiratory Culture - Final 03/08/21 21:30 Nasal Secretion SARS-CoV-2 Antigen (Rapid) - Final SARS-CoV-2 (COVID 19) D/C Instructions Discharge Diet: Low fat / Low cholesterol Discharge Activity: Return to Normal Activity Weight Bearing Status: Weight bearing as tolerated Call your doctor if you observe: Fever of 101 or Higher, Shortness of breath, Dizziness, Swelling in the ankles, Chest pain and Increased palpitations (irregular heartbeat) Meaningful Use Info Meaningful Use Diagnoses (Choose all that apply): None applicable Discharge Plan Admission Admit Date/Time: 03/09/21 01:39 Primary Reason for Your Visit: acute hypoxic respiratory failure due to COVID 19 pneumonia Attending Provider: Trang Khoury Primary Care Provider: Matt Griffin Consulting Providers: Maycol Espinoza Instructions Patient Instructions: Coronavirus Disease 2019 (COVID-19): Overview, Coronavirus Disease 2019 (COVID-19): Prevention, COVID-19: Lying in a Prone Position (Proning), Preventing the Spread of Infection Understanding Isolation Procedures, Disinfecting Your Home of COVID-19 Additional Instructions / Restrictions: use oxygen 4L as needed for shortness of breath, both at rest and with walking. Discharge Orders/Prescriptions Prescriptions: New amlodipine 5 mg tablet 5 mg PO DAILY Qty: 30 RF: 1 Mucinex 1,200 mg tablet extended release 12hr 1,200 mg PO BID PRN (Reason: congestion) Qty: 30 RF: 0 dexamethasone 6 mg tablet 6 mg PO DAILY Qty: 3 RF: 0 Referrals / Follow Up: Maycol Espinoza MD [STAFF PHYSICIAN] - Within 2 Weeks Matt Griffin MD [Primary Care Provider] - Within 2 Weeks Disposition Disposition (needs filled in before D/C Order can be placed): Home, Self Care Charges/Coding Visit Charges Inpatient E&M: 05230 Disch Hosp
--- NOTE | 2021-03-15 12:22 | CASEMGMT ---
Referral faxed to [facility] [place] as pt qualifies for home O2. TC to [place] to make aware of referral and that pt will be using a generator. Portable tank taken from [employer].
[2021-03-15 13:10] VITALS: BP 109/70; PULSE 95; RESP 18; TEMP 36.3; O2SAT 95
[2021-03-15 13:57] LABS: Pathologist Review Reviewed
--- NOTE | 2021-03-15 14:02 | PHA.DC.MR ---
Pharmacy Service has performed discharge medication reconciliation for this patient. The patient's discharge medication list was reviewed for discrepancies and discrepancies were resolved. Home Medications amlodipine 5 mg PO DAILY #30 tab 03/15/21 dexamethasone 6 mg PO DAILY #3 tab 03/15/21 guaifenesin [Mucinex] 1,200 mg PO BID PRN #30 tab 03/15/21
--- NOTE | 2021-03-16 15:38 | CASEMGMT ---
LUCY BRYANT Discharge Follow Up Phone Call: LELAE: 7 Strata:2 Call Date: 03/16/21 Discharge Date: 03/15/21 Time of Call:1538 Duration:<1 min Admitting Dx:acute respiratory failure LUCY BRYANT attempted to complete follow up phone call after recent hospitalization. Left message on identified voicemail with reason of the call and call back number.
== END 2021-03-15 14:15 | disposition home or self-care (01) | DRG 177 ==
LOC: ED 03-09 01:27 → MS3 03-09 02:25
PROVIDERS: Family Medicine; Admitting Provider Hospitalist; Emergency Provider Emergency Medicine; PCP Family Medicine; Visit Provider Student in an Organized Health Care Education/Training Program
DX: U07.1 COVID-19 (principal); J12.82 Pneumonia due to coronavirus disease 2019; J96.01 Acute respiratory failure with hypoxia; R03.0 Elevated blood-pressure reading, without diagnosis of hypertension
CPT/HCPCS: 36415; 71045; 71275; 80048; 80053; 83735; 84145; 84484; 85025; 85379; 87070; 87205; 87426; 93005; 94640; 94668; 94762; 99251; 99285; Q9967; A4216; G0463; J1940

== ENCOUNTER → 2021-05-12 09:16 | Outpatient (CLI) | payer SELFPAY, OTHER ==
[2021-05-12 11:10] VITALS: PULSE 80; PULSE 81; PULSE 95; PULSE 96; PULSE 97; O2SAT 93; O2SAT 95; O2SAT 96; O2SAT 97
--- NOTE | 2021-05-13 07:35 | PFT ---
INTRODUCTION: The patient is a 45-year-old male that presents for pulmonary function studies secondary to a diagnosis of post COVID-19. Respiratory therapy reported good patient effort. Bronchodilators were used during testing. INTERPRETATION: Forced expiration spirometry demonstrates no evidence of a large airways obstructive ventilatory defect. There was no significant response to aerosolized bronchodilators. Spirograms are of good quality and plateau normally. Body plethysmography was performed and revealed a decreased TLC to 3.82 L, 70% of predicted, indicative of a mild restrictive ventilatory impairment. The remainder of the lung volumes are symmetrically reduced. Diffusing capacity by single breath CO is within normal limits. IMPRESSION: Isolated mild restrictive ventilatory impairment with preserved diffusing capacity.
--- NOTE | 2021-05-13 07:42 | PCM.PSN.6M ---
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 Assistive device used: None Pre-test Oxygen Delivery Method Room Air Pulse Ox (%) 97 Pulse Rate (60-100 beats/min) 81 Dyspnea Steve Scale (0-10) 0 Exertion Steve Scale (6-20) 6 1st minute Oxygen Delivery Method Room Air Pulse Ox (%) 96 Pulse Rate (60-100 beats/min) 97 2nd minute Oxygen Delivery Method Room Air Pulse Ox (%) 97 Pulse Rate (60-100 beats/min) 97 3rd minute Oxygen Delivery Method Room Air Pulse Ox (%) 95 Pulse Rate (60-100 beats/min) 96 4th minute Oxygen Delivery Method Room Air Pulse Ox (%) 96 Pulse Rate (60-100 beats/min) 96 5th minute Oxygen Delivery Method Room Air Pulse Ox (%) 95 Pulse Rate (60-100 beats/min) 97 6th minute Oxygen Delivery Method Room Air Pulse Ox (%) 93 Pulse Rate (60-100 beats/min) 95 Dyspnea Steve Scale (0-10) 1 Exertion Steve Scale (6-20) 12 Post-test Oxygen Delivery Method Room Air Pulse Ox (%) 95 Pulse Rate (60-100 beats/min) 80 Full Laps Walked 19 Partial Lap, Number of Tiles Walked 20 Total Distance Walked (ft) 1141 Interpretation Interpretation: The patient ambulated 1141 feet over the course of 6 minutes beginning on room air without assistive devices. Pretesting oxygen saturation was noted to be 97% on room air. With ambulation, the giovani oxygen saturation was 93%. There was no significant exertional oxygen desaturation. Recommendations Recommendations: There is no indication for the use of supplemental oxygen at this time.
== END ==
PROVIDERS: PCP Family Medicine; Visit Provider Nurse Practitioner Acute Care
DX: U09.9 Post COVID-19 condition, unspecified (principal)
CPT/HCPCS: 94060; 94618; 94726; 94729

== ENCOUNTER → 2022-06-07 | Outpatient (CLI) | payer SELFPAY, OTHER ==
--- NOTE | 2022-06-08 13:38 | PFT ---
INTRODUCTION: The patient is a 46-year-old male that presents for pulmonary function studies secondary to a diagnosis of post COVID-19. Respiratory therapy reported good patient effort. Bronchodilators were used during testing. INTERPRETATION: Forced expiration spirometry demonstrates no evidence of a large airways obstructive ventilatory defect. There was no significant response to aerosolized bronchodilators. Spirograms are of good quality and plateau normally. The respiratory flow volume loop is normal. Body plethysmography was performed and reveals lung volumes to be within normal limits. Diffusing capacity by single breath CO was also within normal limits. IMPRESSION: Grossly normal pulmonary function studies.
== END | disposition home or self-care (01) ==
PROVIDERS: PCP Family Medicine; Visit Provider Internal Medicine Critical Care Medicine
DX: U09.9 Post COVID-19 condition, unspecified (principal)
CPT/HCPCS: 94060; 94726; 94729